=== PATIENT | male | born 1960 | race Caucasian/White ===

== ENCOUNTER 2016-10-20 08:41 | Outpatient (CLI) | payer BC ==
--- NOTE | 2016-10-20 09:40 | DIAGNOSTIC IMAGING REPORT ---
PROCEDURE: US ABDOMEN ULTRASOUND-COMPLETE INDICATION: ELEVATED LFT'S TECHNIQUE: Sagastume scale and color Doppler sonographic images of the abdomen were obtained. COMPARISON: None. FINDINGS: Liver measures 17.6 cm with lobulated contour and increased echogenicity. There is a 1.3 cm left hepatic lobe cyst. Mildly enlarged spleen (14.3 x 8 cm). Cholecystectomy. Pancreas obscured by bowel gas. Visualized aorta and IVC are unremarkable. Normal hepatopetal flow. Kidneys are unremarkable and both measure 11.8 cm in length. IMPRESSION: 1. Lobulated liver contour with increased echogenicity and mild splenomegaly suggestive of intrinsic liver disease. Hepatic steatosis is also possible 2. Left hepatic lobe cyst 3. Cholecystectomy 4. Pancreas obscured by bowel gas
== END 2016-10-20 23:00 ==
LOC: US SRH 08:41
DX: R94.5 Abnormal results of liver function studies (principal); R93.5 Abnormal findings on diagnostic imaging of other abdominal regions, including retroperitoneum